=== PATIENT | female | born 1975 | race Two or more races ===

== ENCOUNTER 2023-07-23 05:55 | Day surgery (SDC) | payer OTHER ==
[2023-07-20 11:16] LABS: INR < 0.93; PARTIAL THROMBOPLASTIN TIME 27.8 SECONDS (22.0-34.0); PROTHROMBIN TIME 9.7 SECONDS (9.0-11.5)
[~2023-07-23 05:55] MED LIST: ADULT LOW DOSE81 M1 PO; ATORVASTATIN CA40 MG PO; TOPROL XL25 M1 PO; [UNRECOGNIZED DRUG - OTHER]
== END 2023-07-23 18:50 | disposition home or self-care (01) ==
LOC: CIR.AMB 05:55
PROVIDERS: ATTEND Urology
DX: N20.1 Calculus of ureter (principal); Z20.822 Contact with and (suspected) exposure to COVID-19; E11.9 Type 2 diabetes mellitus without complications; E78.5 Hyperlipidemia, unspecified; E03.9 Hypothyroidism, unspecified; I51.9 Heart disease, unspecified